=== PATIENT | female | born 1985 | race Caucasian/White ===

== ENCOUNTER 2018-01-29 17:55 | Emergency (ER) | payer SELFPAY ==
[~2018-01-29] VITALS: Ht 157.5 cm; Wt 62.0 kg
[~2018-01-29 17:55] MED LIST: CHLO.12%30 SSP; IBUP800T23 PO; PENI500T PO
[2018-01-29 18:08] VITALS: BP 136/81; PULSE 90; RESP 17; TEMP 98.2; O2SAT 96
--- NOTE | 2018-01-29 19:12 | PD ---
HPI Chief Complaint: Headache Time Seen by Provider: 18:49 Travel History International Travel<30 days: No Contact w/Intl Traveler<30days: No Traveled to known affect area: No History of Present Illness HPI Department complaining of a headache on top of her head ongoing for approximately 10 years without radiation. Patient reports this seems to get worse as the day goes on and with stress. Patient reports she thought that this had to do with her pulling her hair back to tight but even after she lets her hair down she continues to have the pain. Patient denies ever being evaluated for this. Denies any change in vision, neck pain, fevers, , loss change in bowel or bladder, chest pain, shortness of breath, dizziness, IV drug use, or trauma. Patient states that symptoms got worse today when her children at home would not listen and she started arguing with her fianc. Patient reports taking ibuprofen prior to coming to the emergency department seem to help some. Patient also has concerns over possible STD exposure 2 years ago from previous significant other who she had to breakup with secondary her significant other not being able get off of IV drugs. Denies any abdominal pain, back pain, vaginal discharge, or other symptoms. [facility] Past Medical History Headaches: Yes ?: Not LMP: 01/22/18 Social History Alcohol Use: No Tobacco Use: No Substance Use: No Allergies-Medications (Allergen,Severity, Reaction): Coded Allergies: No Known Allergies (Unverified Adverse Reaction, Unknown, 01/29/18) Reported Meds & Prescriptions Reported Meds & Active Scripts Active Naprosyn (Naproxen) 500 Mg Tab 500 Mg PO Q12HR PRN Review of Systems Except as stated in HPI: all other systems reviewed are Neg Physical Exam Narrative GENERAL: Well-developed, well nourished, in no acute distress, and non-ill appearing. SKIN: Focused skin assessment warm and dry. HEAD: Atraumatic. Normocephalic. EYES: Pupils equal and round. EOMI. No scleral icterus. No injection or drainage. ENT: No nasal bleeding or discharge. Mucous membranes pink and moist. NECK: Trachea midline. Supple. No nuclear rigidity. CARDIOVASCULAR: Regular rate and rhythm. No murmur appreciated. RESPIRATORY: No accessory muscle use. No respiratory distress. Clear to auscultation. Breath sounds equal bilaterally. GASTROINTESTINAL: Abdomen soft, non-tender, nondistended, and no guarding. Hepatic and splenic margins not palpable. No pulsatile mass. MUSCULOSKELETAL: No obvious deformities. No clubbing. No cyanosis. No edema. Full range of motion. NEUROLOGICAL: Awake and alert. No obvious cranial nerve deficits. Motor grossly within normal limits. Normal speech. PSYCHIATRIC: Appropriate mood and affect; insight and judgment normal. Data Data Last Documented VS Vital Signs Date Time Temp Pulse Resp B/P (MAP) Pulse Ox O2 Delivery O2 Flow Rate FiO2 01/29/18 18:08 98.2 90 17 136/81 (99) [address] Brain W/O Iv Contrast(Rout) (01/29/18 19:02) Diphenhydramine Inj (Benadryl Inj) (01/29/18 19:15) Ed Discharge Order (01/29/18 19:49) [facility] Medical Decision Making Medical Screen Exam Complete: Yes Emergency Medical Condition: Yes Interpretation(s) Last Impressions Head CT 01/29/181901 Signed Impressions: Service Date/Time: Monday, January 29, 2018 19:10 - CONCLUSION: Normal examination for a patient of this age. Jose R Kraus MD Differential Diagnosis Migraines, chronic headache, stress headache, intracranial hemorrhage, mass Narrative Course The patients headache appeared nonspecific. Due to patients subjective complaint and presentation, a head CT was performed which was normal and without evidence of blood or mass. The patient looks great, feels better and is in no significant objective discomfort currently. The patient is in no distress and the patients neurological exam is normal, neck is supple and without meningismus. The headache is not consistent with meningitis or infection, nor does it appear consistent with intracranial bleed (SAH etc.), carotid dissection , nor mass by history, examination and evaluation. There is very little clinical evidence to suggest missed hemorrhage on CT and/or sentinel bleed thus an invasive procedure such as a lumbar puncture was not performed. Medication and instructions to rest in a cool dark quite place were discussed with the patient. Also, outpatient follow up was instructed. The patient was instructed to return as needed or if symptoms changed or worsened, fever developed or inability to tolerate fluids. The patient agreed with plan. Patient in no obvious distress upon re-evaluation. All pertinent Radiology result(s) discussed with patient. Discussed patient with Dr. Mcknight, who saw and evaluated patient and is in agreement plan of care and disposition. Any questions/concerns in reference to patient diagnosis/condition discussed and clarified prior to patient's discharge. Reinforced sheer importance of close follow up with patient's primary physician or primary care clinic. Patient instructed to follow-up with health department for STD check if desired and [facility] Magallon for counseling regarding her home stress if needed. Instructed patient to return to ED immediately, if symptoms return/worsen. Patient showed understanding of above instructions. Further instructions and recommendations were detailed in discharge paperwork. Patient ambulated without difficulty out of ED at discharge. Diagnosis Primary Impression: Headache Qualified Codes: R51 - Headache Additional Impression: Stress Referrals: [facility] Dept. Patient Instructions: General Headache (ED), General Instructions, Stress (ED) Additional Instructions: Follow-up with your primary care physician, [facility] Magallon, and/or health department for reevaluation. Take all medication as prescribed. Drink plenty of non-caffeinated nonalcoholic fluids. Exercise to try to reduce your stress. Return to the emergency department if symptoms get worse. Med/Other Pt SpecificInfo: Prescription(s) given Scripts Naproxen (Naprosyn) 500 Mg Tab 500 MG PO Q12HR Y for HEADACHE, #10 TAB 0 Refills Prov: Merrick Mcknight MD 01/29/18 Disposition: 01 DISCHARGE HOME Condition: Stable Ambrosio [place] January 29, 2018 19:12
[2018-01-29] MEDS ORDERED: diphenhydrAMINE HCL 50 MG/ML VIAL IM ONE (19:15)
--- NOTE | 2018-01-29 19:38 | RADRPT ---
EXAM DATE/TIME: 01/29/2018 19:10 [facility] COMPARISON: No previous studies available for comparison. INDICATIONS : Cephalgia. RADIATION DOSE: 42.45 CTDIvol (mGy) MEDICAL HISTORY : None SURGICAL HISTORY : IUD ENCOUNTER: Initial ACUITY: 1 day PAIN SCALE: 5/10 LOCATION: cranial TECHNIQUE: Multiple contiguous axial images were obtained of the head. Using automated exposure control and adj ustment of the mA and/or kV according to patient size, radiation dose was kept as low as reasonably a chievable to obtain optimal diagnostic quality images. DICOM format image data is available electro nically for review and comparison. FINDINGS: CEREBRUM: The ventricles are normal for age. No evidence of midline shift, mass lesion, hemorrhage or acute in farction. No extra-axial fluid collections are seen. POSTERIOR FOSSA: The cerebellum and brainstem are intact. The 4th ventricle is midline. The cerebellopontine angle i s unremarkable. EXTRACRANIAL: The visualized portion of the orbits is intact. SKULL: The calvaria is intact. No evidence of skull fracture. CONCLUSION: Normal examination for a patient of this age. Jose R Kraus MD on January 29, 2018 at 19:33 Board Certified Radiologist. This report was verified electronically.
[2018-01-29] MEDS ORDERED: NAPR500 PO (19:45)
--- NOTE | 2018-01-29 19:52 | PD ---
Data Data Last Documented VS Vital Signs Date Time Temp Pulse Resp B/P (MAP) Pulse Ox O2 Delivery O2 Flow Rate FiO2 01/29/18 18:08 98.2 90 17 136/81 (99) [address] Brain W/O Iv Contrast(Rout) (01/29/18 19:02) Diphenhydramine Inj (Benadryl Inj) (01/29/18 19:15) Ed Discharge Order (01/29/18 19:49) MDM Supervised Visit with [facility]: Yes Narrative Course The history, exam, and medical decision-making in the associated mid-level provider note were completed with my assistance. I reviewed and agree with the findings presented. I attest that I had a [id number] encounter with the patient on the same day, and personally performed and documented my assessment and findings in the medical record. *My assessment and Findings: 32-year-old woman, nontraumatic headache ongoing for years worse with stress. Unremarkable exam. Recommend supportive treatment. Diagnosis Primary Impression: Headache Qualified Codes: R51 - Headache Additional Impression: Stress Referrals: [facility] Dept. Patient Instructions: General Instructions, Stress (ED), General Headache (ED) Departure Forms: Tests/Procedures Additional Instruction: Follow-up with your primary care physician, [facility] Magallon, and/or health department for reevaluation. Take all medication as prescribed. Drink plenty of non-caffeinated nonalcoholic fluids. Exercise to try to reduce your stress. Return to the emergency department if symptoms get worse. Scripts Naproxen (Naprosyn) 500 Mg Tab 500 MG PO Q12HR Y for HEADACHE, #10 TAB 0 Refills Prov: Merrick Mcknight MD 01/29/18 Disposition: 01 DISCHARGE HOME Condition: Stable Merrick Mcknight MD January 29, 2018 19:52
== END 2018-01-29 21:21 | disposition home or self-care (01) ==
LOC: NEPE 17:55
DX: R51 Headache (principal); F43.9 Reaction to severe stress, unspecified
CPT/HCPCS: 70450; 96372; 99283; J1200